=== PATIENT | male | born 1970 | race Caucasian/White ===

== ENCOUNTER 2018-01-13 08:41 | Day surgery (SDC) | payer BC ==
[2018-01-09 16:08] VITALS: BMI 37.2
[~2018-01-13 08:41] MED LIST: LACTATED RINGERS 1,000 ML IV SCH
[2018-01-13 09:04] VITALS: RESP 16; TEMP 97.3
--- NOTE | 2018-01-13 09:33 | P.GSHP ---
History of Present Illness H&P Date: 01/13/18 Chief Complaint: GERD This a 47-year-old male referred from Dr. Joss Gutierrez. Patient presents today for EGD. He's had issues with GERD. Past Medical History Past Medical History: Hypertension Additional Past Medical History / Comment(s): migraines, SEASONAL ALLERGIES History of Any Multi-Drug Resistant Organisms: None Reported Past Surgical History: Cholecystectomy, Heart Catheterization Additional Past Surgical History / Comment(s): robert carpal tunnel Past Anesthesia/Blood Transfusion Reactions: No Reported Reaction Smoking Status: Never smoker - Past Family History Mother Family Medical History: Chest Pain / Angina, Myocardial Infarction ([place]) Additional Family Medical History / Comment(s): angina, heart valve problem Father Family Medical History: Cancer Additional Family Medical History / Comment(s): paternal grandfather had colon cancer Medications and Allergies Home Medications Medication Instructions Recorded Confirmed Type Fexofenadine HCl [Imani Allergy] 180 mg PO DAILY 06/13/15 01/09/18 History Fluticasone Nasal [place] [Flonase 1 spr EA NOSTRIL DAILY PRN 06/13/15 01/09/18 History Nasal [place]] Multivitamins, Thera [Multivitamin 1 tab PO DAILY 06/13/15 01/09/18 History (formulary)] Losartan [Cozaar] 25 mg PO DAILY 01/09/18 01/09/18 History Allergies Allergy/AdvReac Type Severity Reaction Status Date / Time moxifloxacin HCl AdvReac Diarrhea Verified 01/13/18 09:00 [From Avelox] Surgical - Exam Vital Signs Temp Pulse Resp BP Pulse Ox 97.3 F L 101 H 16 125/85 96 01/13/18 09:04 01/13/18 09:04 01/13/18 09:04 01/13/18 09:04 01/13/18 09:04 - General well developed, no distress - Eyes PERRL - ENT normal pinna - Neck no masses - Respiratory normal expansion - Cardiovascular Rhythm: regular - Abdomen Abdomen: soft, non tender Assessment and Plan Assessment: GERD. We'll perform EGD.
[2018-01-13] MEDS ORDERED: PROPOFOL 10 MG/ML 20 ML VIAL IV ONE (09:36)
[2018-01-13] MEDS ORDERED: LIDOCAINE 1% INJ 10MG/ML (20 ML MDV) ONE (09:36)
--- NOTE | 2018-01-13 09:52 | P.OP ---
Date of Procedure: 01/13/18 Preoperative Diagnosis: GERD Postoperative Diagnosis: Antral gastritis No evidence of hiatal hernia Mild esophagitis Procedure(s) Performed: EGD Anesthesia: MAC Surgeon: Duglas Henderson Pathology: other (Antrum, esophagus) Condition: stable Disposition: PACU Description of Procedure: The patient's placed on the endoscopy table in the lateral position. He received IV sedation. The gastroscope placed oropharynx passed in the esophagus into the stomach. Scope was then placed through the pylorus. The first second portion of the duodenum appeared normal. Scope was then brought back the antrum and this was mildly inflamed. A biopsies performed. Scope was then retroflexed and the remainder of the stomach appeared normal. The GE junction was at 40 cm. The distal esophagus appeared inflamed. There was no significant hiatal hernia. The proximal esophagus appeared normal. Scope was withdrawn for patient.
[2018-01-13 10:33] VITALS: BP 131/78; PULSE 76
== END 2018-01-13 10:43 | disposition home or self-care (01) ==
LOC: ORWHC2ENDO 08:41
PROVIDERS: ATTEND Surgery
DX: K29.50 Unspecified chronic gastritis without bleeding (principal); K21.0 Gastro-esophageal reflux disease with esophagitis; I10 Essential (primary) hypertension; G43.909 Migraine, unspecified, not intractable, without status migrainosus; J30.2 Other seasonal allergic rhinitis; Z79.51 Long term (current) use of inhaled steroids; Z79.899 Other long term (current) drug therapy; Z90.49 Acquired absence of other specified parts of digestive tract; Z88.1 Allergy status to other antibiotic agents
CPT/HCPCS: 88305; 43239; J2001; J2704

== ENCOUNTER 2018-12-29 08:12 | Day surgery (SDC) | payer BC ==
[2018-12-24 14:46] VITALS: BMI 37.6
[2018-12-29 08:40] VITALS: TEMP 98
[2018-12-29] MEDS ORDERED: PROPOFOL 10 MG/ML 20 ML VIAL IV ONE (09:22)
--- NOTE | 2018-12-29 09:24 | P.GSHP ---
History of Present Illness H&P Date: 12/29/18 Chief Complaint: Screening colonoscopy This a 48-year-old male who presents today for screening colonoscopy. Patient denies any significant GI complaints. Past Medical History Past Medical History: GERD/Reflux, Hypertension Additional Past Medical History / Comment(s): migraines, SEASONAL ALLERGIES, palpitations, History of Any Multi-Drug Resistant Organisms: None Reported Past Surgical History: Cholecystectomy, Heart Catheterization, Orthopedic Surgery Additional Past Surgical History / Comment(s): robert carpal tunnel, cervical f usion Past Anesthesia/Blood Transfusion Reactions: No Reported Reaction Smoking Status: Never smoker - Past Family History Mother Family Medical History: No Reported History Additional Family Medical History / Comment(s): . Father Family Medical History: Cancer Additional Family Medical History / Comment(s): paternal grandfather had colon cancer Medications and Allergies Home Medications Medication Instructions Recorded Confirmed Type Fexofenadine HCl [Imani Allergy] 180 mg PO DAILY 06/13/15 12/24/18 History Fluticasone Nasal [place] [Flonase 1 spr EA NOSTRIL DAILY PRN 06/13/15 12/24/18 History Nasal [place]] Losartan [Cozaar] 25 mg PO DAILY 01/09/18 12/24/18 History Albuterol Inhaler [Ventolin Hfa 1 - 2 puff INHALATION RT-Q6H PRN 12/24/18 History Inhaler] Omeprazole 20 mg PO HS 12/24/18 12/29/18 History Allergies Allergy/AdvReac Type Severity Reaction Status Date / Time moxifloxacin HCl AdvReac Diarrhea Verified 12/29/18 08:34 [From Avelox] Surgical - Exam Vital Signs Temp Pulse Resp BP Pulse Ox 98.0 F 78 17 133/72 96 12/29/18 08:40 12/29/18 08:40 12/29/18 08:40 12/29/18 08:40 12/29/18 08:40 - General well developed, well nourished, no distress - Eyes PERRL - ENT normal pinna - Neck no masses - Respiratory normal expansion - Cardiovascular Rhythm: regular - Abdomen Abdomen: soft, non tender Assessment and Plan Assessment: We'll perform screening colonoscopy.
--- NOTE | 2018-12-29 09:37 | P.OP ---
Date of Procedure: 12/29/18 Preoperative Diagnosis: [place] colonoscopy Postoperative Diagnosis: Normal colon Procedure(s) Performed: Colonoscopy Anesthesia: MAC Surgeon: Duglas Henderson Pathology: none sent Condition: stable Disposition: PACU Description of Procedure: PROCEDURE: The patient was placed on the endoscopy table in the lateral position. Digital rectal examination was performed which revealed no abnormalities. The prostate was symmetrical without nodules. Flexible colonoscope was then placed in the patient's anus and passed throughout the entire colon. The ileocecal valve was visualized. The cecum, ascending, transverse, descending and sigmoid colon were normal. The rectum was normal as well. There were no masses, polyps or diverticula noted in the entire colon. SUMMARY OF FINDINGS: Normal colonoscopy.
[2018-12-29 09:55] VITALS: BP 110/72; PULSE 89; RESP 18
== END 2018-12-29 10:10 | disposition home or self-care (01) ==
LOC: ORWHC2ENDO 08:12
PROVIDERS: ATTEND Surgery
DX: Z12.11 Encounter for screening for malignant neoplasm of colon (principal); Z80.0 Family history of malignant neoplasm of digestive organs; I10 Essential (primary) hypertension; K21.9 Gastro-esophageal reflux disease without esophagitis; G43.909 Migraine, unspecified, not intractable, without status migrainosus; R00.2 Palpitations; J30.2 Other seasonal allergic rhinitis; Z90.49 Acquired absence of other specified parts of digestive tract; Z98.1 Arthrodesis status; Z79.899 Other long term (current) drug therapy; Z88.1 Allergy status to other antibiotic agents
CPT/HCPCS: J2704; G0105; 45378

== ENCOUNTER → 2021-03-06 | Outpatient (CLI) | payer BC | END | disposition home or self-care (01) | LOC: LABWHC1 12:46 | PROVIDERS: ATTEND Family Medicine | DX: Z03.818 Encounter for observation for suspected exposure to other biological agents ruled out (principal) | CPT/HCPCS: U0003; C9803 ==

== ENCOUNTER → 2021-06-27 | Outpatient (CLI) | payer BC ==
--- NOTE | 2021-06-27 12:33 | ECHOF ---
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 This was a technically difficult study with suboptimal views. The left ventricular size is normal. Left ventricular wall thickness is normal. Overall left vent ricular systolic function is normal with, an EF between 55 - 60 %. The right ventricle is normal in size. The left atrial size is normal. The right atrial size is normal. Lumason used The aortic valve is trileaflet, and appears structurally normal. No aortic stenosis or regurgitation. The mitral valve leaflets are mildly thickened. Mild mitral regurgitation is present. The tricuspid valve appears structurally normal. Trace tricuspid regurgitation present. Right martina tricular systolic pressure is normal at < 35 mmHg. There is no pulmonic regurgitation present. The aortic root is mildy dilated. IVC Not well visulized. There is no pericardial effusion. CONCLUSIONS -------- 1. This was a technically difficult study with suboptimal views. 2. Left ventricular wall thickness is normal. 3. Overall left ventricular systolic function is normal with, an EF between 55 - 60 %. 4. The aortic valve is trileaflet, and appears structurally normal. No aortic stenosis or regurgitati on. 5. Mild mitral regurgitation is present. 6. Trace tricuspid regurgitation present. 7. The aortic root is mildy dilated. 8. There is no pericardial effusion. [employer]: Mary Saleem RDCS
== END | disposition home or self-care (01) ==
LOC: RADECHMAIN 08:23
PROVIDERS: ATTEND Family Medicine
DX: I34.0 Nonrheumatic mitral (valve) insufficiency (principal); I07.1 Rheumatic tricuspid insufficiency
CPT/HCPCS: 93306; Q9950

== ENCOUNTER → 2022-09-23 | Outpatient (CLI) | payer BC ==
--- NOTE | 2022-09-23 13:44 | XR ---
EXAMINATION TYPE: XR chest 2V DATE OF EXAM: 09/23/2022 COMPARISON: 06/18/2015 HISTORY: Shortness of breath TECHNIQUE: Frontal and lateral views of the chest are obtained. FINDINGS: Scattered senescent parenchymal changes noted. Hyperinflation compatible with COPD. No evidence for infiltrate. No evidence for atelectasis. Heart size is stable. Mediastinal structures are stable and grossly unremarkable. No evidence for hilar prominence. Degenerative changes dorsal spine. IMPRESSION: 1. No evidence for acute pulmonary disease.
== END | disposition home or self-care (01) ==
LOC: RADXRMAIN 13:26
PROVIDERS: ATTEND Family Medicine
DX: R06.02 Shortness of breath (principal); R05.9 Cough, unspecified
CPT/HCPCS: 71046

== ENCOUNTER → 2023-11-26 | Outpatient (CLI) | payer BC ==
--- NOTE | 2023-12-07 22:16 | P.PCN ---
Date of Procedure: 11/26/23 Operative Findings: Home sleep study testing Date of service is 11/26/2023 History 52-year-old male patient presented to to the office due to concerns of obstructive sleep apnea. The patient was suspected to have BERTIN due to symptoms of snoring, sleep fragmentation and chronic fatigue and sleepiness and the patient was found to have an [place] score of 8 out of 24. Patient is obese and has a body mass index of 37.1 and the patient has a Mallampati class IV and a clinical suspicion for obstructive sleep apnea was high. The patient also suffers from severe persistent bronchial asthma that has been under adequate control. A home sleep study was ordered accordingly Pertinent physical findings Patient has a body mass index of 37.1 Technical description The [employer] system was used to complete this home sleep study. This is a type III home sleep study. The total recording duration was 7 hours and 21 minutes. The study started at 10:34 PM and ended at 5:56 AM. The patient had a total of 7 hours and 3 minutes of flow monitoring and 7 hours and 11 minutes of oxygen saturation monitoring. As such, this was an adequate study Results The respiratory evaluation showed a total of 10 obstructive apneas and 140 obstructive hypopneas. The resulting AHI was 21.3. Oxygenation analysis The patient had a baseline pulse ox of 94% while awake. Average pulse ox was 92% during sleep with a minimum pulse ox of 78%. The patient spent approximately 40 minutes of sleep time with a pulse ox of 89% and below Cardiac summary Average heart rate was 77 with a minimum heart rate of 61 and a maximum heart rate of 118 Assessment Obstructive sleep apnea, moderate in severity with an AHI of 21.3 Obesity with a BMI of 37.1 Chronic hypersomnia with an [place] score of 8 Severe persistent bronchial asthma Hypertension Acid reflux Plan Patient has symptomatic obstructive sleep apnea. Recommend CPAP therapy. We asked the patient to present back to the sleep center to undergo a CPAP titration and we will proceed accordingly.
== END ==
LOC: 3 N SLEEP 11:00
PROVIDERS: ATTEND Internal Medicine Critical Care Medicine
DX: G47.33 Obstructive sleep apnea (adult) (pediatric) (principal); G47.10 Hypersomnia, unspecified; E66.9 Obesity, unspecified; I10 Essential (primary) hypertension; J45.909 Unspecified asthma, uncomplicated; K21.9 Gastro-esophageal reflux disease without esophagitis; Z68.37 Body mass index [BMI] 37.0-37.9, adult; Z88.8 Allergy status to other drugs, medicaments and biological substances; Z88.1 Allergy status to other antibiotic agents; Z79.899 Other long term (current) drug therapy; Z79.51 Long term (current) use of inhaled steroids

== ENCOUNTER 2024-01-14 19:45 | Outpatient (CLI) | payer BC ==
--- NOTE | 2024-01-22 13:25 | P.PCN ---
Date of Procedure: 01/14/24 Operative Findings: CPAP titration report Date of service is 01/14/2024 Pertinent history This is a 53-year-old female patient who presented to me with symptoms of snoring, sleep fragmentation and chronic fatigue and sleepiness with an [place] score of 8. The patient is obese with a body mass index of 37.1. The patient underwent a home sleep study and the patient was found to have moderate to severe BERTIN with an AHI of 21.3. Based on that, the patient is coming in to undergo a CPAP titration. The patient is known to have persistent severe bronchial asthma, hypertension acid reflux. Pertinent physical findings The patient's height is 5 feet and 9 inches with a weight of 251 pounds and a body mass index of 37.1 Technical description The patient was studied using a standard complex polysomnography protocol that included recording of the Lead II EKG, Central, occipital and frontal EEG, right and left outer canthus EOG, submental EMG, right and left anterior tibialis EMG, respiratory airflow by thermocouple and or pressure/flow transducer, respiratory efforts by abdominal and thoracic PVDF belts, oxygen saturation by cable oximetry. Position by observation synchronized the PSG. Equipment used: [id number]. Stepwise CPAP titration was done to eliminate all obstructive respiratory events Sleep architecture The total recording duration was 396 minutes. The total sleep time was 280 minutes. The wake after sleep onset time was 32.5 minutes. The overall sleep efficiency was 70%. The patient's latency to sleep onset was 83 minutes. The sleep architecture was catheterized by 0.4% stage I, 63.8% stage II, 1.1% stage III and a total of 34.8% REM sleep. The total arousal index was 9.2 CPAP titration summary The patient was started on CPAP therapy initially at a pressure of 4 cm of water and the pressure was gradually increased maintenance of 1 cm to reach a maximum CPAP pressure of 9 cm of water. This was a very successful titration. All sleep stages were encountered including REM sleep. The patient was studied in the supine and nonsupine body position. And a pressure of 9 cm of water, there was completed ablation of the obstructive respiratory events. No significant emergence of central events. The patient was able to maintain saturation above 90% without any oxygen desaturations. Sleep continuity summary The total arousal index was 9.2 with a total of 43 arousals. The respiratory arousal index was 0.4 Periodic limb movement summary The patient had total of 224. Little movement activity with an index of 48.0. There was a total of 4 periodic limb movement activity that resulted in arousals with an index of 0.9 Cardiac summary Average heart rate was 66 with a minimum heart of 61 and a maximum heart of 77 Assessment Symptomatic obstructive sleep apnea, moderate in severity with an AHI of 21. The patient underwent a successful CPAP titration. Chronic hypersomnia with an [place] score of 8 Periodic limb movements, not causing any significant arousals Hypertension Severe persistent bronchial asthma Acid reflux Plan Initiate CPAP therapy at a pressure of 9 cm of water with a C-Flex of 3. The patient will be given a AirFit and 20 medium size nasal mask. Encourage weight loss. Optimize sleep hygiene measures. Initiate CPAP therapy and see him back in office in 30 to 90 days to assess clinical response and compliancy. Will make further adjustments and recommendations based on her overall progress. Will continue to follow.
== END 2024-01-15 05:45 | disposition home or self-care (01) ==
LOC: 3 N SLEEP 19:45
PROVIDERS: ATTEND Internal Medicine Critical Care Medicine
CPT/HCPCS: 95811